=== PATIENT | female | born 1960 | race Caucasian/White ===

== ENCOUNTER 2018-12-14 09:23 | Observation (INO) | payer BC, OTHER ==
[2018-12-14] VITALS (10 sets, daily range): BP systolic 109–151; BP diastolic 79–936
[~2018-12-14] VITALS: Ht 167.6 cm; Wt 83.0 kg
--- NOTE | ~2018-12-14 | P ---
[facility] [place] [address] PROCEDURE REPORT Name: SVETLANAERNESTO LON Room #: 210-P [facility]#: [id number] Admission: 12/14/18 Attend Phys: Markos Macedo MD Discharge: Date of : 58 Report #: [id number] THIS REPORT FOR: //name// CC: Markos Macedo [facility] DATE OF SERVICE: 12/14/2018 PREOPERATIVE DIAGNOSIS: Atrial fibrillation. POSTOPERATIVE DIAGNOSIS: Atrial fibrillation and atrial flutter. HISTORY: The patient is a 58-year-old female with a history of atrial fibrillation, here for ablation. PROCEDURES PERFORMED: 1. Atrial fibrillation ablation, CPT code 28152. 2. 3D mapping, CPT code 72537. 3. Intracardiac echo, CPT code 26047. 4. Second pathway ablation, CPT code 80750. ANESTHESIA: The patient underwent general anesthesia with no anesthesia related complications. DESCRIPTION OF PROCEDURE: The patient underwent informed consent. We discussed the details of the procedure including the risks, which include but not limited to bleeding, vascular damage, cardiac perforation, stroke, IA as well as damage to the ramona conduction system. She understood these risks and is willing to proceed. The patient was brought to the EP laboratory in a fasting and sedated state, prepped and draped in a sterile fashion. The right femoral vein, I obtained access x 3 after administering lidocaine. I then placed 8, 9 and 7-Emirati short sheaths. Next, under fluoroscopy, I placed a decapolar catheter into the coronary sinus. Of note, this was a pretty vertical coronary sinus, which made placement somewhat challenging. Next, I placed the ICE catheter in the right atrium. She did have unusual anatomy. With my ICE catheter in the standard position, I was not getting standard views. It almost looked like views you would get from a SARAH as they were off axis. After orienting myself, I was eventually able to determine the location of the aorta, then the two left-sided pulmonary veins, the right inferior pulmonary vein and the interatrial septum. As such, the patient was systemically heparinized and transseptal was performed using an SL1 sheath and [place] needle. I then advanced the wire into the left superior pulmonary vein and then was able to advance the SL1 sheath into the left atrium. I then exchanged for the cryo sheath and with some forward [facility] [address] [place] [address] PROCEDURE REPORT Name: SVETLANAERNESTO Room #: 210-P [facility]#: [id number] Admission: 12/14/18 Attend Phys: Markos Macedo MD Discharge: Date of : 58 Report #: [id number] pressure was able to advance across the interatrial septum and then placed the cryoballoon into the left atrium. Of note, the patient did have periods of atrial tachycardia or atrial flutter with wire manipulation and catheter manipulation. These would self-terminate eventually. Next, using the Lasso catheter, I created detailed 3D geometry of the left atrium. The left superior pulmonary vein was very superiorly oriented. Getting into the left inferior pulmonary vein was very challenging. It was very posteriorly directed. The right-sided veins were otherwise straightforward. Next, I started by isolating the left superior pulmonary vein and my two first freezes had very poor temps, so I came off after around 70-80 seconds. I then performed two additional 4-minute freezes where attempts were improved at around -46 degrees. The vein demonstrated isolation after these two freezes. I then turned my attention to the left inferior pulmonary vein. I performed approximately five freezes in this vein initially, but I could not isolate it. I could not get good occlusion. In the left inferior branch, there were two branches, one was superior and one was inferior. I tried using these separately to isolate and this was unsuccessful. I think the main issue at this vein it was very posteriorly oriented. I therefore decided to go to the right-sided veins as I was not able to isolate the left inferior. I performed a 4-minute freeze in the right superior pulmonary vein and isolated it within 170 seconds. I then performed an additional freeze of 3 minutes duration. This vein remained isolated throughout the remainder of the procedure. I then turned my attention to the right inferior pulmonary vein. This vein underwent a 4-minute freeze followed by a 3-minute freeze. I could not see acute isolation, but afterwards it was clearly isolated. I then went back and created a voltage map and all the veins were isolated except for the left inferior pulmonary vein. I attempted for about 20 minutes just to get my Achieve catheter into the left inferior pulmonary vein and I could not get access to this. I kept either going into the left atrial appendage or across the mitral valve. Eventually, I went back with the Lasso catheter, was able to advance this into the left inferior pulmonary vein and then I advanced the sheath into the vein and then placed the cryoballoon back into this vessel. I performed several additional freezes, all which had very poor temperatures at around -30 degrees and again I tried using the superior and inferior branches and this would not isolate. Therefore, I removed the cryoballoon and placed the Lasso back into the left inferior pulmonary vein. The vein was connected along the anterior henry. I therefore performed a second transseptal using my SL1 sheath and a SmartTouch ThermoCool ablation catheter. I went to the anterior henry, started ablating and within about 30 seconds there was isolation and then there was some reconnection and as I went to the posterior aspect of the vein, the vein re-isolated. I performed extensive ablation in this region and this vein was now isolated. A voltage map showed that all four veins were now isolated. Atrial flutter ablation: As the patient was having frequent episodes of atrial flutter, I decided to perform atrial flutter ablation. Ablation was performed at 6 o'clock along the cavotricuspid isthmus until I fell into the inferior vena [facility] [address] [place] [address] PROCEDURE REPORT Name: ERNESTO MOTA Room #: 210-P [facility]#: [id number] Admission: 12/14/18 Attend Phys: Markos Macedo MD Discharge: Date of : 58 Report #: [id number] cava. Ablation was performed via a ramp sheath at 40 gardner. Post-ablation, there was no further activity along the isthmus. As such, the procedure was concluded. I placed the intracardiac ultrasound catheter back in the heart and verified there was no pericardial effusion. The patient then received systemic protamine and once ACT was within acceptable range, catheters and sheaths were pulled and hemostasis was obtained. The patient awoke neurologically and hemodynamically intact. No complications and no significant bleeding. CONCLUSIONS: 1. Successful AFib ablation with isolation of the pulmonary veins requiring both cryoablation and radiofrequency ablation for final isolation of the left inferior pulmonary vein due to challenging anatomy. 2. Successful atrial flutter ablation for cavotricuspid isthmus dependent flutter. By: [id number] Markos Macedo MD /nt
[2018-12-14 10:11] LABS: ABSOLUTE NEUTROPHILS 2.6 thou/uL (1.4-8.2); EOSINOPHILS 2.3 % (0.0-3.0); HEMATOCRIT 42.4 % (37.0-47.0); LYMPHOCYTES 33.5 % (24.0-44.0); MCH 28.8 pg (26.0-34.0); MCHC 32.9 g/dL (28.0-37.0); MCV 87.4 fL (80.0-100.0); MONOCYTES 8.7 % (1.0-8.0); PLATELET COUNT 226 thou/uL (150-400); POLYS 54.5 % (36.0-66.0); RBC 4.85 mil/uL (4.20-5.00); WBC 4.8 thou/uL (4.0-11.0)
[2018-12-14 10:19] LABS: CALCIUM 9.9 mg/dL (8.5-10.1); POTASSIUM 3.9 mmol/L (3.5-5.1)
[2018-12-14] MEDS ORDERED: ASPIR 8181 MG PO (10:23)
[2018-12-14 10:24] LABS: APTT 32.4 Seconds (24.5-32.8); PROTIME 9.5 Seconds (9.3-11.4)
[2018-12-14] MEDS ORDERED: VITAMIN D3400 UNIT PO (10:24)
[2018-12-14 10:25] LABS: ALBUMIN 3.4 g/dL (3.4-5.0); TOTAL BILIRUBIN 0.3 mg/dL (<0.1-1.0); TOTAL PROTEIN 7.8 g/dL (6.4-8.2)
[2018-12-14] MEDS ORDERED: ESTRADIOL 1 MG T1 M1 PO (10:25)
[2018-12-14] MEDS ORDERED: CARDIZEM CD120 MG PO (10:25)
[2018-12-14] MEDS ORDERED: UNICOMPLEX M TA1 TA1 PO (10:26)
[2018-12-14] MEDS ORDERED: FISH OIL 1,001000 M2 PO (10:26)
[2018-12-14] MEDS ORDERED: PROMETRIUM100 MG PO (10:27)
[2018-12-14] MEDS ORDERED: PRADAXA150 MG PO (10:28)
[2018-12-14] MEDS ORDERED: ARMOUR THYROID30 M1 PO (10:28)
--- NOTE | 2018-12-14 18:32 | NUR ---
PT ADMITTED FROM PACU S/P ABLATION. PT ALERT AND ORIENTED X4. DENIES PAIN AND SOA. VSS. PLACED TO BOOSTER OPERATOR AND VS MONITOR. PT STABLE. AT BEDSIDE AND BOTH DENY QUESTIONS AND CONCERNS REGARDING POC. PT AWARE OF POST PROCEDURE PROTOCOLS, EXPECTATIONS AND LIMITATIONS. NIGHT NURSE WILL BE AWARE INCOMPLETE TASKS SINCE ADMISSION ARRIVED SO CLOSE TO SHIFT CHANGE. RIGHT GROIN POST SHEATH SITE C/D/I.
[2018-12-15] VITALS: BP 109/80
[2018-12-15 04:00] VITALS: BP 119/74
--- NOTE | 2018-12-15 05:38 | NUR ---
ASSUMED CARE OF PT AT 1900. PT JUST ADMITTED TO FLOOR. POST CATH WORKUP COMPLETED AT 0400. R GROIN SITE C/D/I WITH NO HEMATOMA. PT C/O ZERO PAIN. MCCULLOUGH D/C AND PT VOIDED TWICE WITH NO CONCERNS. PT SLEPT THRU SHIFT. POST CATH BEDREST ENDED AT 2300. PT VSS. PT IS PROGRESSING TOWARD POC AND DISCHARGE. WILL CONTINUE TO MONITOR
[2018-12-15 06:04] VITALS: BP 119/74
[2018-12-15 08:00] VITALS: BP 134/87
[2018-12-15] MEDS ORDERED: FLECAINIDE ACET50 M1 PO (09:25)
[2018-12-15 11:08] VITALS: BP 127/80
--- NOTE | 2018-12-15 12:33 | NUR ---
PT HAD 2 EPISODE OF EMISIS, HOWEVER PT ABLE TO TAKE MEDS NOW. WILL CONTINUE TO ASSESS.
[2018-12-15 16:03] VITALS: BP 134/87
--- NOTE | 2018-12-15 16:16 | NUR ---
IV AND TELE DISCONTINUED. PT UNDERSTANDS ALL FOLLOW UP ORDERS AND DISCHARGED TO HOME.
== END 2018-12-15 16:29 | disposition home or self-care (01) ==
LOC: CATH 09:23 → 2N 18:50 → CATH 18:51 → 2N 18:51 → ENTRNSPT 12-15 16:22 → 2N 12-15 16:29
PROVIDERS: ADMIT Internal Medicine Cardiovascular Disease
DX: I48.0 Paroxysmal atrial fibrillation (principal); I48.92 Unspecified atrial flutter; E03.9 Hypothyroidism, unspecified; F17.200 Nicotine dependence, unspecified, uncomplicated; Z79.899 Other long term (current) drug therapy; Z79.82 Long term (current) use of aspirin
CPT/HCPCS: 10081; 62110; 62900; 65020; 70005